=== PATIENT | female | born 1950 | race Caucasian/White ===

== ENCOUNTER 2018-03-28 10:01 | Emergency (ER) | payer OTHER ==
[~2018-03-28] VITALS: Ht 157.5 cm; Wt 69.4 kg
[~2018-03-28 10:01] MED LIST: INDERAL LA80 MG; PANADOL EXTRA500 MG
[2018-03-28] MEDS ORDERED: CYMBALTA60 MG PO (10:07)
[2018-03-28] MEDS ORDERED: COZAAR25 MG PO (10:08)
[2018-03-28] MEDS ORDERED: HYDROCHLOROTH12.5 M1 PO (10:08)
== END 2018-03-28 14:50 | disposition home or self-care (01) ==
LOC: ER 10:01
DX: R42 Dizziness and giddiness (principal)